=== PATIENT | female | born 1960 | race American Indian/Alaskan Native ===

== ENCOUNTER 2016-10-25 06:26 | Day surgery (SDC) | payer BC, OTHER ==
[~2016-10-25] VITALS: Ht 167.6 cm; Wt 93.0 kg
[~2016-10-25 06:26] MED LIST: TYLENOL WITH C1 EACH PO
--- NOTE | 2016-10-25 08:08 | NUR ---
10/25/16 0808 [place] Colon 0759- PT ARRIVED TO PACU, WAS REACTIVE AND MAINTAINING OWN AIRWAY. PT IS PASSING MORDERANT AMOUNTS OF GAS.
--- NOTE | 2016-10-26 10:51 | OR ---
[facility] [address] [place], [place] [address] Signed DATE OF PROCEDURE: 10/25/16 PREOPERATIVE DIAGNOSIS: Screening. POSTOPERATIVE DIAGNOSIS: [id number] sigmoid diverticulosis. PROCEDURE PERFORMED: Colonoscopy without biopsy. ESTIMATED BLOOD LOSS: None. INDICATIONS Ev is a 55-year-old female who was asked to see me for her initial screening colonoscopy. She has no lower GI complaints and there is no family history of colon cancer or polyps. In the office, I gave her a pamphlet on colonoscopy and we looked at that together along with the risks including, but not limited to gas bloating, crampy abdominal pain, bleeding, perforation requiring surgery, and missed diagnosis. We also discussed the need for IV conscious sedation. She had expressed understanding and wished to proceed. PROCEDURE NOTE Ev was taken into our endoscopy suite and placed in the left lateral decubitus position. She was given divided doses of 8 mg of Versed and 200 mcg of fentanyl. A digital rectal exam had been performed. This was unremarkable. The adult colonoscope had been introduced and advanced under direct visualization of camera. She had a long narrow, somewhat tortuous sigmoid colon, and this was the area that gave us the most trouble and required the additional sedation along with abdominal compression. The scope eventually made its way around into the cecum. Her prep was quite good. The scope was then slowly withdrawn. She had a few diverticula in the sigmoid colon. They were moderate in size and [id number] in number and scattered about. The rectum itself was unremarkable. Upon retroflexion of scope, there was no additional pathology noted above the anal canal. After this, the gas was suctioned out and the colonoscope removed. Ev tolerated the procedure quite well. RECOMMENDATIONS Ev can follow up in 10 years for repeat colonoscopy. MD ARGENIS Ennis/Bi Electronically Signed By: CANDIDA MURPHY MD 10/26/16 1051 PATIENT NAME: EV WILSON [facility] REPORT DATE OF : 64 PHYSICIAN: CANDIDA MURPHY MD REPORT #: [id number] REPORT IS CONFIDENTIAL AND NOT TO BE RELEASED WITHOUT AUTHORIZATION [address] [place], [place] [address] Signed /[id number] cc: Moi Haro MD Electronically Signed By: CANDIDA MURPHY MD 10/26/16 1051 PATIENT NAME: EV WILSON [facility] REPORT DATE OF : 64 PHYSICIAN: CANDIDA MURPHY MD REPORT #: [id number] REPORT IS CONFIDENTIAL AND NOT TO BE RELEASED WITHOUT AUTHORIZATION
== END 2016-10-25 09:04 | disposition home or self-care (01) ==
LOC: DS 06:26 → OPS 06:26 → DS 06:45 → OPS 09:04
PROVIDERS: Colon & Rectal Surgery
PROC: 0DJD8ZZ Inspection of Lower Intestinal Tract, Via Natural or Artificial Opening Endoscopic (ICD-10-PCS; principal; 2016-10-25 06:45)
DX: Z12.11 Encounter for screening for malignant neoplasm of colon (principal); K57.30 Diverticulosis of large intestine without perforation or abscess without bleeding; Z87.891 Personal history of nicotine dependence; Z98.890 Other specified postprocedural states
CPT/HCPCS: 99152; 99153; J2250; J3010; J7120

== ENCOUNTER 2020-01-24 12:04 | Emergency (ER) | payer BC, OTHER ==
[~2020-01-24] VITALS: Ht 167.6 cm; Wt 93.0 kg
== END 2020-01-24 16:12 | disposition home or self-care (01) ==
LOC: ED 12:04
DX: U07.1 COVID-19 (principal)
CPT/HCPCS: 99284; A9270; C9803; U0003